=== PATIENT | female | born 1965 | race Caucasian/White ===

== ENCOUNTER 2019-06-11 19:42 | Emergency (ER) | payer OTHER ==
[~2019-06-11] VITALS: Ht 172.7 cm; Wt 67.7 kg
[~2019-06-11 19:42] MED LIST: CEPH-443 PO; PHEN-538 PO
[2019-06-11 19:47] VITALS: BP 128/86; PULSE 79; RESP 16; Ht 172.7 cm; Wt 67.7 kg
== END 2019-06-11 22:18 | disposition home or self-care (01) ==
LOC: FTE 19:42
DX: R30.0 Dysuria (principal)
CPT/HCPCS: 81003; 87086; 99283